=== PATIENT | male | born 1950 | race Caucasian/White ===

== ENCOUNTER → 2020-02-24 | Outpatient (CLI) | payer MEDICARE ==
[~2020-02-24] MED LIST: AMOX1TAB64 PO; ASPI-496 PO; ATOR-2 PO; ATOR40TA78 PO; EMPA1TAB15 PO; EMPA1TAB7 PO; FINA5TAB4 PO; FURO20TA3 PO; LOSA1TAB22 PO; LOSA25TA25 PO; MELA10TA PO; METO200T47 PO; METO25TA35 PO; PIOG30TA68 PO; REGADENOSON 0.4 MG/5 ML SYRINGE ONE; RISE5TAB PO; SEMA1PEN INJ; WARF1TAB74 PO; WARF7.5T PO; potassium
== END | disposition home or self-care (01) ==
LOC: CFH 08:21
PROVIDERS: ATTEND Internal Medicine Cardiovascular Disease
DX: I21.29 ST elevation (STEMI) myocardial infarction involving other sites (principal); I10 Essential (primary) hypertension; I25.10 Atherosclerotic heart disease of native coronary artery without angina pectoris; I25.5 Ischemic cardiomyopathy; I25.9 Chronic ischemic heart disease, unspecified
CPT/HCPCS: 78452; 93017; A9502; J2785

== ENCOUNTER 2020-05-08 20:54 | Emergency (ER) | payer MEDICARE ==
[~2020-05-08] VITALS: Ht 185.4 cm; Wt 96.3 kg
[~2020-05-08 20:54] MED LIST changes: -REGADENOSON 0.4 MG/5 ML SYRINGE ONE
[2020-05-08 20:58] VITALS: BP 102/72
--- NOTE | 2020-05-08 21:04 | NUR ---
PT AMBULATED TO ROOM WITH TECH. PT HERE FOR CAT BITE TO HAND. PT STARTED ABX BUT PAIN AND SWELLING HAVE GOTTEN WORSE. VSS. TO SEE. CALL LIGHT IN REACH
[2020-05-08] MEDS ORDERED: NEOSPORIN OINT. PKT 1 PACKET ONE (21:27)
--- NOTE | 2020-05-08 21:36 | NUR ---
Patient given discharge instructions and they have confirmed that they understand the instructions. Patient ambulatory with steady gait.
== END 2020-05-08 21:41 | disposition home or self-care (01) ==
LOC: ED 21:39
DX: S61.452A Open bite of left hand, initial encounter (principal); E11.9 Type 2 diabetes mellitus without complications; W55.01XA Bitten by cat, initial encounter; Y93.89 Activity, other specified; Y92.009 Unspecified place in unspecified non-institutional (private) residence as the place of occurrence of the external cause; Y99.8 Other external cause status
CPT/HCPCS: 99283

== ENCOUNTER → 2020-07-23 | Outpatient (CLI) | payer MEDICARE | END | disposition home or self-care (01) | LOC: CFH 10:16 | PROVIDERS: ATTEND Internal Medicine Cardiovascular Disease | DX: I36.1 Nonrheumatic tricuspid (valve) insufficiency (principal); I11.9 Hypertensive heart disease without heart failure | CPT/HCPCS: 93306 ==